=== PATIENT | male | born 1940 | race Caucasian/White ===

== ENCOUNTER → 2017-07-21 | Outpatient (CLI) | payer MEDICARE, OTHER ==
[~2017-07-21] MED LIST: ASP81TEC PO; ATEN100T88 PO; ATEN50TA PO; ATOR40TA70 PO; CATHETER FLUSH 10 ML SYR IV PRN; CHOL100011 PO; CLPD75T PO; ENDUR ACIN PO; EZET10TA5 PO; GABA-488 PO; HYDR12.56 PO; HYDR25TA4 PO; IOHEXOL 350 MG/ML 150 ML (OMNIPAQUE 350) VIAL IV ONE; LISI20TA PO; LUTE20TA PO; MULT-1029 PO; NIAC500T30 PO; NS 100 ML (IVPB) BAG IV ONE; OMEG1CAP51 PO; OMEG1CAP57 PO; VIT1TABL82 PO
[2017-07-21 09:24] LABS: ANION GAP 8 MMOL/L (5-14); BLOOD UREA NITROGEN 14 MG/DL (7-18); BUN/CREATININE RATIO 17; CALCIUM 9.5 MG/DL (8.5-10.1); CARBON DIOXIDE 30 MMOL/L (21-32); CHLORIDE 102 MMOL/L (98-107); CREATININE SERUM 0.82 MG/DL (0.60-1.30); GFR ESTIMATED > 60; GLUCOSE 104 MG/DL (70-105); POTASSIUM 3.9 MMOL/L (3.6-5.0); SODIUM 140 MMOL/L (135-145)
--- NOTE | 2017-07-21 12:20 | Diagnostic Imaging Report ---
PROCEDURE: CT angiography of the chest with contrast. TECHNIQUE: Multiple contiguous axial images were obtained through the chest after uneventful bolus administration of intravenous contrast. Reconstructed CTA MIP acquisitions were also performed. INDICATION: Ascending aortic aneurysm. 125 mL of Omnipaque 350 is administered intravenously. COMPARISON: The study is compared to 05/26/2014 exam. FINDINGS: There is an ascending aortic aneurysm with maximum caliber of 4.6 cm, stable from 2014. The aortic root is ectatic measuring 4.3 cm based on coronal images measurement similar to the previous exam. The aortic arch is mildly ectatic at 3.8 cm in caliber. Mild ectasia of the descending aorta is seen. The heart size is borderline. No pericardial or pleural effusion. No mediastinal mass or significantly enlarged lymph node is seen. No hilar or axillary lymphadenopathy is seen. The lungs demonstrate moderate emphysema. No significant consolidation, mass or suspicious nodule. The osseous structures demonstrate degenerative changes with anterior osteophyte seen. The sections in the upper abdomen demonstrate moderate to severe stenosis in the proximal celiac trunk. IMPRESSION: 1. Ascending aortic aneurysm measuring in the mid ascending aorta 4.6 cm similar to 2014 exam. The rest of the thoracic aorta and the aortic root are ectatic without significant change. 2. Emphysema. Dictated by: Dictated on workstation # [id number]
== END ==
LOC: RAD 08:51
PROVIDERS: ATTEND Internal Medicine Cardiovascular Disease
DX: I72.1 Aneurysm of artery of upper extremity (principal); J43.9 Emphysema, unspecified; I65.23 Occlusion and stenosis of bilateral carotid arteries; I70.213 Atherosclerosis of native arteries of extremities with intermittent claudication, bilateral legs; I10 Essential (primary) hypertension; I25.10 Atherosclerotic heart disease of native coronary artery without angina pectoris; E78.4 Other hyperlipidemia
CPT/HCPCS: 36415; 71275; 80048

== ENCOUNTER 2019-10-09 12:56 | Inpatient (IN) | payer MEDICARE, OTHER ==
[2019-10-09] VITALS (9 sets, daily range): BP systolic 104–153; BP diastolic 54–138
[~2019-10-09] VITALS: Ht 172.7 cm; Wt 80.6 kg
[~2019-10-09 12:56] MED LIST changes: -CATHETER FLUSH 10 ML SYR IV PRN; -IOHEXOL 350 MG/ML 150 ML (OMNIPAQUE 350) VIAL IV ONE; -NS 100 ML (IVPB) BAG IV ONE
[2019-10-09] MEDS ORDERED: ACETAMINOPHEN 325 MG TABLET PO PRN (15:00)
[2019-10-09] MEDS ORDERED: polyethylene glycoL POWDER 17 GM (MIRALAX) PACK PO PRN (15:00)
[2019-10-09] MEDS ORDERED: PATIENT MAY USE OWN MEDS, ALL PO SCH (15:00)
[2019-10-09] MEDS: cefTRIAXone FOR IV USE 1,000 MG in WATER (STERILE) FOR INJECTION 10 ML IV SCH (15:00)
[2019-10-09] MEDS ORDERED: MELATONIN 3 MG TABLET PO PRN (15:00)
[2019-10-09] MEDS ORDERED: ONDANSETRON 4 MG/2 ML (SDV) Z0FRAN IV PRN (15:00)
[2019-10-09] MEDS ORDERED: ONDANSETRON 4 MG (ZOFRAN) ORAL DISSOLVE TAB PO PRN (15:00)
[2019-10-09] MEDS ORDERED: BISACODYL 10 MG SUPP (DULCOLAX) PR PRN (15:00)
[2019-10-09] MEDS: ENOXAPARIN 40 MG/0.4 ML (LOVENOX) SYR SC SCH (15:00)
--- NOTE | 2019-10-09 15:04 | History & Physical-Hospitalist ---
History of Present Illness HPI/Chief Complaint Pt is an 79yoCM with a PMH of HTN and PAD who presented to the ER due to low oxygen saturations and low heart rate. He states that he checks his blood pressure eveyr day and last weke noticed that it was in the 30-40s so he called his PCP who advised him to cut his dose of Bystolic in half. Despite this it remained in the 40s. Overnight he felt short of breath and check his oxygen saturation and noticed it was 87. This all prompted him to seek evaluation in the ER at [facility]. Per ER MSW his heart rate revealed a sinus bradycardia at times and a complete heart block. He was transferred here for cardiac evaluation. Workup of hypoxia also revealed bilateral pneumonia and mycoplasma testing was positive. Source: patient Date Seen 10/09/19 Time Seen by a Provider: 14:58 Attending Physician Ata Morris MD PCP Jasmine Reyes MD Referring Physician Date of Admission Oct 09, 2019 at 14:25 Home Medications & Allergies Home Medications Reviewed patient Home Medication Reconciliation performed by pharmacy medication reconciliations semiconductor equipment technician and/or nursing. Patients Allergies have been reviewed. Allergies Allergies Coded Allergies No Known Drug Allergies (Unverified09/09/13) Past Jswpnqk-Okksfx-Akysbw Hx Past Med/Social Hx: Reviewed Nursing Past Med/Soc Hx Patient Social History Marrital Status: Smoking Status: Former Smoker Immunizations Up To Date Date of Pneumonia Vaccine: Sep 09, 2011 Date of Influenza Vaccine: May 19, 2019 Past Medical History Surgeries: Abdominal Cardiac: Hypertension, Peripheral Vascular Reproductive: No Gastrointestinal: Diverticulosis Musculoskeletal: Arthritis Loss of Vision: Denies Hearing Impairment: Hearing Aide Right, Hearing Aide Left Family History Reviewed Nursing Family Hx Angina 19 FATHER Dementia 19 MOTHER Diabetes mellitus Drug abuse G8 BROTHER FH: CHF (congestive heart failure) G8 BROTHER Hypercholesterolemia G8 BROTHER G8 SISTER Hypertension G8 BROTHER G8 SISTER Review of Systems Constitutional: No chills, No fever, No malaise EENTM: no symptoms reported Respiratory: orthopnea, short of breath Cardiovascular: see HPI; No chest pain, No edema, No Hx of Intervention, No palpitations Gastrointestinal: no symptoms reported Genitourinary: no symptoms reported Musculoskeletal: no symptoms reported Skin: no symptoms reported Psychiatric/Neurological: No Symptoms Reported Physical Exam Physical Exam Vital Signs Vital Signs - First Documented 10/09/19 14:43 Temp 37.2 Pulse 46 Resp 20 B/P (MAP) 104/82 (89) Pulse Ox 91 O2 Delivery Nasal Cannula O2 Flow Rate 3.00 Capillary Refill : Height, Weight, BMI Height: 5'8.00" Weight: 179lbs. 1.0oz. [id number]; 28.49 BMI Method: General Appearance: No Apparent Distress, WD/WN HEENT: Moist Mucous Membranes; No Scleral Icterus (L), No Scleral Icterus (R) Neck: Normal Inspection, Supple; No Carotid Bruit Respiratory: No Accessory Muscle Use, No Respiratory Distress, Decreased Breath Sounds; No Wheezing Cardiovascular: Regular Rate, Rhythm, No Murmur, Bradycardia Gastrointestinal: Normal Bowel Sounds, Non Tender, Soft Extremity: No Calf Tenderness, No Pedal Edema Neurologic/Psychiatric: Alert, Oriented x3, Normal Mood/Affect Results Results/Procedures Labs Patient resulted labs reviewed. Assessment/Plan Admission Diagnosis CAP Bradycardia Admission Status: Inpatient Order (span 2 midnights) Reason for Inpatient Admission: bradycardia Assessment and Plan CAP Hypoxia Continue abx, Rocephin and Doxycycline for mycoplasma Oxygen to keep sats >90 MAT protocol Bradycardia Cardiology consulted Reviewed EKG appears to be complete heart block Discussed with Dr Morris who will see in consultation Hold home Bystolic HTN BP low end of normal Hold meds Hypothyroidism Continue home synthroid Diagnosis/Problems Diagnosis/Problems (1) Bradycardia Status: Acute (2) HTN (hypertension) Status: Chronic Qualifiers: Hypertension type: essential hypertension Qualified Codes: I10 - Essential (primary) hypertension (3) PAD (peripheral artery disease) Status: Chronic (4) CAP (community acquired pneumonia) Status: Acute Qualifiers: Laterality: unspecified laterality Qualified Codes: J18.9 - Pneumonia, unspecified organism Clinical Quality Measures DVT/VTE Risk/Contraindication: Risk Factor Score Per Nursin RFS Level Per Nursing on Admit: 4+=Very High YEHUDA SIEGEL MD Oct 09, 2019 15:04
[2019-10-09] MEDS: DOXYCYCLINE INJECTION 100 MG in NS (IVPB) 100 ML IV SCH (20:07)
[2019-10-10] VITALS (7 sets, daily range): BP systolic 118–159; BP diastolic 64–92
[2019-10-10 04:19] LABS: MEAN PLATELET VOLUME 10.2 FL (7.4-10.4); RED CELL DISTRIBUTION WIDTH 13.9 % (10.0-14.5); WHITE BLOOD COUNT 5.7 10^3/uL (4.3-11.0)
[2019-10-10 04:40] LABS: INR 1.2 (0.8-1.4); PROTHROMBIN TIME PATIENT 15.8 SEC (12.2-14.7)
[2019-10-10 04:42] LABS: BUN/CREATININE RATIO 19; CALCIUM 8.5 MG/DL (8.5-10.1); CARBON DIOXIDE 21 MMOL/L (21-32); CHLORIDE 107 MMOL/L (98-107); CREATININE SERUM 0.67 MG/DL (0.60-1.30); GFR ESTIMATED > 60; GLUCOSE 90 MG/DL (70-105); POTASSIUM 3.1 MMOL/L (3.6-5.0); SODIUM 139 MMOL/L (135-145)
[2019-10-10] MEDS: LEVOTHYROXINE 88 MCG (LEVOTHORID) TAB PO SCH (06:35)
--- NOTE | 2019-10-10 07:26 | Diagnostic Imaging Report ---
INDICATION: Pneumonia. COMPARISON: 09/22/2014 FINDINGS: There is cardiomegaly. There is some venous congestion. There is a right upper lobe infiltrate. No pleural effusion or pneumothorax. IMPRESSION: 1. Right upper lobe infiltrate suspect for early pneumonia. 2. Cardiomegaly. 3. Mild central pulmonary venous congestion. Dictated by: Dictated on workstation # [id number]
--- NOTE | 2019-10-10 08:21 | Consultation-Cardiology ---
HPI-Cardiology Cardiology Consultation Date of Consultation 10/10/19 Date of Admission Time Seen by Provider: 08:17 Indication: Complete heart block HPI 79 years old gentleman with history of extensive peripheral arterial disease, hypertension. 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 He noted that his heart rate was in the 30s to 40s, he reported that usually his heart rate is in the mid to upper 40s, he called his primary care physician and his beta blockers dose was decreased. Noted some dyspnea that has been worsening, went to the emergency room and diagnosed with complete heart block and bilateral pneumonia and transferred over here. On my evaluation was laying down comfortably, denied any shortness of breath, no syncope, no chest pain, no palpitation, no claudications. Home Medications & Allergies Allergies: Coded Allergies: No Known Drug Allergies (Unverified , 09/09/13) Home Medication List Reviewed: Yes RAA-Eetybb-Dnitys Hx Patient Social History Marital Status: Smoking Status: Former Smoker Immunizations Up To Date Date of Pneumonia Vaccine: Sep 09, 2011 Date of Influenza Vaccine: May 19, 2019 Past Medical History Discussed below Family Medical History Family History: Angina 19 FATHER Dementia 19 MOTHER Diabetes mellitus Drug abuse G8 BROTHER FH: CHF (congestive heart failure) G8 BROTHER Hypercholesterolemia G8 BROTHER G8 SISTER Hypertension G8 BROTHER G8 SISTER Review of Systems-General Review of Systems Constitutional: see HPI; No chills, No fever, No malaise EENTM: see HPI, no symptoms reported Respiratory: see HPI; No cough; dyspnea on exertion; No hemoptysis; orthopnea; No phlegm; short of breath; No stridor, No wheezing, No other Cardiovascular: see HPI; No chest pain, No edema, No Hx of Intervention, No palpitations Gastrointestinal: no symptoms reported, see HPI Genitourinary: no symptoms reported Musculoskeletal: no symptoms reported, see HPI Skin: no symptoms reported, see HPI Psychiatric/Neurological: No Symptoms Reported, See HPI Reviewed Test Results Reviewed Test Results Lab Laboratory Tests Test 10/10/19 03:15 Range/Units White Blood Count 5.7 4.3-11.0 10^3/uL Red Blood Count 4.23 L 4.35-5.85 10^6/uL Hemoglobin 13.0 L 13.3-17.7 G/DL Hematocrit 39 L 40-54 % Mean Corpuscular Volume 93 80-99 FL Mean Corpuscular Hemoglobin 31 25-34 PG Mean Corpuscular Hemoglobin Concent 33 32-36 G/DL Red Cell Distribution Width 13.9 10.0-14.5 % Platelet Count 215 130-400 10^3/uL Mean Platelet Volume 10.2 7.4-10.4 FL Prothrombin Time 15.8 H 12.2-14.7 SEC INR Comment 1.2 0.8-1.4 Sodium Level 139 135-145 MMOL/L Potassium Level 3.1 L 3.6-5.0 MMOL/L Chloride Level 107 98-107 MMOL/L Carbon Dioxide Level 21 21-32 MMOL/L Anion Gap 11 5-14 MMOL/L Blood Urea Nitrogen 13 7-18 MG/DL Creatinine 0.67 0.60-1.30 MG/DL Estimat Glomerular Filtration Rate > 60 BUN/Creatinine Ratio 19 Glucose Level 90 70-105 MG/DL Calcium Level 8.5 8.5-10.1 MG/DL Physical Exam Physical Exam Vital Signs Vital Signs - First Documented 10/09/19 10/09/19 14:26 14:43 Temp 37.2 Pulse 47 Resp 20 B/P (MAP) 104/82 (89) Pulse Ox 91 O2 Delivery Nasal Cannula O2 Flow Rate 3.00 Capillary Refill : Greater Than 3 Seconds Height, Weight, BMI Height: 5'8.00" Weight: 179lbs. 1.0oz. 81.192033cb; 28.49 BMI Method: General Appearance: No Apparent Distress, WD/WN HEENT: Moist Mucous Membranes; No Scleral Icterus (L), No Scleral Icterus (R) Neck: Normal Inspection, Supple; No Carotid Bruit Respiratory: No Accessory Muscle Use, No Respiratory Distress, Decreased Breath Sounds; No Wheezing Cardiovascular: Regular Rate, Rhythm, No Murmur, Bradycardia Gastrointestinal: Normal Bowel Sounds, Non Tender, Soft Extremity: No Calf Tenderness, No Pedal Edema Neurologic/Psychiatric: Alert, Oriented x3, Normal Mood/Affect A/P-Cardiology Admission Diagnosis Complete heart block Pneumonia Coronary artery disease Peripheral arterial disease Assessment/Plan Complete heart block, heart rate in the 40s, has been off Bystolic for over 24 hours, still in complete heart block, discussed with him the management plan, I recommend monitoring him and treating pneumonia and possible proceeding with dual chamber pacemaker implantation tomorrow. Pneumonia, started on Rocephin and doxycycline, continue to monitor Coronary artery disease, patient had extensive risk factors, no recent workup, will need workup for coronary artery disease after his pacemaker implant. Peripheral arterial disease, extensive disease, multiple interventions done in the past, currently asymptomatic and walk about 10,000 steps without limitation. Continue with conservative management and monitor Hypertension, has been on Bystolic, currently on hold. Continue to monitor Hypokalemia, replace and monitor Clinical Quality Measures DVT/VTE Risk/Contraindication: Risk Factor Score Per Nursin RFS Level Per Nursing on Admit: 4+=Very High SIGRID GRACE MD Oct 10, 2019 08:21
[2019-10-10] MEDS: ASPIRIN E.C. 81 MG (ECOTRIN) TAB PO SCH ×2 (08:56→09:13)
[2019-10-10] MEDS: DOXYCYCLINE INJECTION 100 MG in NS (IVPB) 100 ML IV SCH ×2 (08:56→19:40)
[2019-10-10] MEDS: CLOPIDOGREL 75 MG (PLAVIX) TABLET PO SCH (08:56)
[2019-10-10] MEDS ORDERED: GABAPENTIN 600 MG (NEURONTIN) TAB PO ONE (09:15)
[2019-10-10] MEDS ORDERED: SALINE NASAL SPRAY (OCEAN) 45 ML BTL PRN (09:15)
[2019-10-10] MEDS ORDERED: GABAPENTIN 300 MG (NEURONTIN) CAP ONE (09:32)
[2019-10-10] MEDS: POTASSIUM CL 10MEQ/50ML IVPB 50 ML IV SCH ×4 (09:43→17:31)
[2019-10-10] MEDS: cefTRIAXone FOR IV USE 1,000 MG in WATER (STERILE) FOR INJECTION 10 ML IV SCH (17:29)
[2019-10-10] MEDS: ENOXAPARIN 40 MG/0.4 ML (LOVENOX) SYR SC SCH (17:29)
[2019-10-10] MEDS: GABAPENTIN 600 MG (NEURONTIN) TAB PO SCH (19:39)
[2019-10-11] VITALS (13 sets, daily range): BP systolic 128–193; BP diastolic 61–118
[2019-10-11 04:00] LABS: BASOPHILS % (AUTO) 1 % (0-10); EOSINOPHILS # (AUTO) 0.3 10^3/uL (0.0-0.3); EOSINOPHILS % (AUTO) 5 % (0-10); HEMATOCRIT 37 % (40-54); HEMOGLOBIN 12.6 G/DL (13.3-17.7); LYMPHOCYTES # (AUTO) 1.3 X 10^3 (1.0-4.0); LYMPHOCYTES % (AUTO) 25 % (12-44); MEAN CORPUSCULAR HEMOGLOBIN 32 PG (25-34); MEAN CORPUSCULAR HGB CONC 34 G/DL (32-36); MEAN CORPUSCULAR VOLUME 94 FL (80-99); MEAN PLATELET VOLUME 10.8 FL (7.4-10.4); MONOCYTES # (AUTO) 0.7 X 10^3 (0.0-1.0); MONOCYTES % (AUTO) 13 % (0-12); NEUTROPHILS # (AUTO) 2.8 X 10^3 (1.8-7.8); NEUTROPHILS % (AUTO) 56 % (42-75); PLATELET COUNT 228 10^3/uL (130-400); RED CELL DISTRIBUTION WIDTH 13.5 % (10.0-14.5)
[2019-10-11 04:14] LABS: ALANINE AMINOTRANSFERASE 16 U/L (0-55); ALKALINE PHOSPHATASE 71 U/L (40-136); BILIRUBIN,TOTAL 0.5 MG/DL (0.1-1.0); BUN/CREATININE RATIO 20; CALCIUM 8.1 MG/DL (8.5-10.1); CARBON DIOXIDE 22 MMOL/L (21-32); CHLORIDE 109 MMOL/L (98-107); CREATININE SERUM 0.76 MG/DL (0.60-1.30); GFR ESTIMATED > 60; GLUCOSE 112 MG/DL (70-105); MAGNESIUM 1.8 MG/DL (1.6-2.4); PHOSPHORUS 3.1 MG/DL (2.3-4.7); POTASSIUM 3.3 MMOL/L (3.6-5.0); SODIUM 138 MMOL/L (135-145); TOTAL PROTEIN 5.5 GM/DL (6.4-8.2)
--- NOTE | 2019-10-11 04:42 | Pulmonary Consultation ---
History of Present Illness History of Present Illness Date Seen by Provider: Oct 11, 2019 Time Seen by Provider: 04:37 Date of Admission Reason for Visit: Complete heart block Allergies and Home Medications Allergies Coded Allergies: No Known Drug Allergies (Unverified , 09/09/13) Home Medications Aspirin 81 Mg Tabec, 81 MG PO DAILY, (Reported) Atenolol 100 Mg Tablet, 100 MG PO DAILY, (Reported) Atorvastatin Calcium 40 Mg Tablet, 40 MG PO HS, (Reported) takes daily at 1630 Cholecalciferol 1,000 Unit Capsule, 1,000 UNIT PO DAILY, (Reported) Clopidogrel Bisulfate 75 Mg Tab, 75 MG PO HS, (Reported) takes daily at 1630 Ezetimibe 10 Mg Tablet, 10 MG PO DAILY, (Reported) Hydrochlorothiazide 25 Mg Tablet, 25 MG PO DAILY, (Reported) Lisinopril 20 Mg Tablet, 20 MG PO HS, (Reported) Mu-Vits-Min Th/Lycopene/Lutein 1 Each Tablet, 1 TAB PO HS, (Reported) Niacin 500 Mg Tablet.sa, 500 MG PO HS, (Reported) Dixon-3 Fatty Acids/Fish Oil 1 Each Capsule, 2,000 MG PO BID, (Reported) Vit B Comp/C/Fa/Iron/Vit E 1 Each Tablet, 1 TAB PO DAILY, (Reported) Past Ddtacjw-Fsuuwg-Emcqbe Hx Past Med/Social Hx: Reviewed Nursing Past Med/Soc Hx Patient Social History Smoking Status: Former Smoker Immunizations Up To Date Date of Pneumonia Vaccine: Sep 09, 2011 Date of Influenza Vaccine: May 19, 2019 Past Medical History Abdominal Hypertension, Peripheral Vascular Reproductive Disorders: No Diverticulosis Arthritis Loss of Vision: Denies Hearing Impairment: Hearing Aide Right, Hearing Aide Left Family Medical History Reviewed Nursing Family Hx Angina 19 FATHER Dementia 19 MOTHER Diabetes mellitus Drug abuse G8 BROTHER FH: CHF (congestive heart failure) G8 BROTHER Hypercholesterolemia G8 BROTHER G8 SISTER Hypertension G8 BROTHER G8 SISTER Sepsis Event Evaluation Height, Weight, BMI Height: 5'8.00" Weight: 179lbs. 1.0oz. 81.415874zd; 28.49 BMI Method: Exam Exam Vital Signs Date Time Temp Pulse Resp B/P (MAP) Pulse Ox O2 Delivery O2 Flow Rate FiO2 10/11/19 01:00 40 10/10/19 23:28 Nasal Cannula 2.00 10/10/19 23:24 37.6 40 22 135/64 (87) 92 Nasal Cannula 2.00 10/10/19 20:00 Nasal Cannula 2.00 10/10/19 19:43 36.8 48 19 159/73 (101) 92 Nasal Cannula 2.00 10/10/19 19:40 Nasal Cannula 2.00 10/10/19 19:01 46 10/10/19 18:29 Nasal Cannula 1.00 10/10/19 16:00 37.0 10/10/19 16:00 92 Nasal Cannula 2.00 10/10/19 16:00 42 16 129/79 (96) 93 Nasal Cannula 3.00 10/10/19 13:00 44 10/10/19 12:00 92 Nasal Cannula 2.00 10/10/19 12:00 37.1 10/10/19 12:00 46 19 118/77 (91) 92 Nasal Cannula 3.00 10/10/19 09:20 92 Nasal Cannula 2.00 10/10/19 08:00 92 Nasal Cannula 2.00 10/10/19 08:00 45 154/92 (112) 95 Nasal Cannula 3.00 10/10/19 07:00 42 I & O 10/11/19 07:00 Intake Total 500 ml Output Total 600 ml Balance -100 ml Height & Weight Height: 5'8.00" Weight: 179lbs. 1.0oz. 81.285095dp; 28.49 BMI Method: General Appearance: No Apparent Distress, WD/WN HEENT: Moist Mucous Membranes; No Scleral Icterus (L), No Scleral Icterus (R) Neck: Normal Inspection, Supple; No Carotid Bruit Respiratory: No Accessory Muscle Use, No Respiratory Distress, Decreased Breath Sounds; No Wheezing Cardiovascular: Regular Rate, Rhythm, No Murmur, Bradycardia Capillary Refill: Less Than 3 Seconds Extremity: No Calf Tenderness, No Pedal Edema Neurologic/Psychiatric: Alert, Oriented x3, Normal Mood/Affect Results Lab Laboratory Tests 10/10/19 03:15 10/11/19 03:10 Assessment/Plan Assessment/Plan Pneumonia -Currently on doxy and Rocephin -IVF -Check influenza and MRSA swab -Thacker cultures pending -Urine strep and legionella Ag CAD with complete heart block -Cardiology following PVD GAURAV CH DO Oct 11, 2019 04:42
[2019-10-11] MEDS: POTASSIUM CL 10MEQ/50ML IVPB 50 ML IV SCH ×4 (05:15→06:56)
[2019-10-11] MEDS: KCL 20 MEQ TAB (K-DUR) PO SCH (05:16)
[2019-10-11] MEDS: MAGNESIUM 1 GM/100 ML IVPB 100 ML IV SCH (05:16)
[2019-10-11 06:05] LABS: BILIRUBIN,URINE NEGATIVE (NEGATIVE); CLARITY,URINE CLEAR; COLOR,URINE YELLOW; GLUCOSE, URINE (UA) NEGATIVE (NEGATIVE); KETONES,URINE NEGATIVE (NEGATIVE); LEUKOCYTE ESTERASE ,URINE 1+ (NEGATIVE); NITRITE,URINE NEGATIVE (NEGATIVE); PH,URINE 6.5 (5-9); PROTEIN,URINE NEGATIVE (NEGATIVE)
[2019-10-11 06:39] LABS: AMORPHOUS SEDIMENT,UR FEW AMOR URATES /LPF; BACTERIA,URINE TRACE /HPF
[2019-10-11] MEDS: LACTATED RINGERS 1,000 ML IV SCH (06:51)
[2019-10-11] MEDS: LEVOTHYROXINE 88 MCG (LEVOTHORID) TAB PO SCH (07:34)
--- NOTE | 2019-10-11 09:01 | Diagnostic Imaging Report ---
EXAMINATION: Chest radiograph, portable AP view. DATE: 10/11/2019 3:58 AM. INDICATION: 79-year-old male, history of pneumonia. Exam positive for mycoplasma. COMPARISON: October 10, 2019 at 0334 hours. FINDINGS: The heart size and mediastinal contours are unchanged. There is no identified pneumothorax. There is multifocal airspace consolidation in the right lung and subtle opacification in the left lung. The overall aeration of the lungs is essentially unchanged. IMPRESSION: Unchanged nonspecific multifocal lung consolidation bilaterally with the findings more prominent in the right lung compared to the left. Dictated by: Dictated on workstation # [id number]
[2019-10-11] MEDS: ASPIRIN E.C. 81 MG (ECOTRIN) TAB PO SCH ×2 (09:31→09:35)
[2019-10-11] MEDS: DOXYCYCLINE INJECTION 100 MG in NS (IVPB) 100 ML IV SCH ×2 (09:31→20:26)
[2019-10-11] MEDS: GABAPENTIN 600 MG (NEURONTIN) TAB PO SCH ×2 (09:31→20:26)
--- NOTE | 2019-10-11 09:34 | Progress Note - Cardiology ---
Cardiology SOAP Progress Note Subjective: No cp or palp or syncope Tires easily Moderate exertional shortness of breath No focal weakness Gen malaise and tiredness No n/v/d Objective: I&O/Vital Signs 10/10/19 10/10/19 10/11/19 10/11/19 23:24 23:28 01:00 05:00 Temp 37.6 36.7 Pulse 40 40 40 Resp 22 20 B/P (MAP) 135/64 (87) 131/61 (84) Pulse Ox 92 93 O2 Delivery Nasal Cannula Nasal Cannula Nasal Cannula O2 Flow Rate 2.00 2.00 2.00 10/11/19 10/11/19 10/11/19 10/11/19 05:00 06:48 07:17 08:00 Temp 36.3 Pulse 43 43 40 Resp 18 17 B/P (MAP) 193/95 (127) 153/95 (114) Pulse Ox 94 91 O2 Delivery Nasal Cannula Nasal Cannula O2 Flow Rate 2.00 2.00 10/11/19 00:00 Intake Total 810 ml Output Total 600 ml Balance 210 ml Weight (Pounds): 179 Weight (Ounces): 1.0 Weight (Calculated Kilograms): 81.683143 Constitutional: AAO x 3, well-developed, well-nourished Respiratory: No accessory muscle use; other (good bilat air entry) Cardiovascular: regular rate-rhythm, S1 and S2, systolic murmur Gastrointestional: No tender; soft; No guarding, No rebound; audible bowel sounds Extremities: No clubbing, No cyanosis, No significant edema Neurologic/Psychiatric: oriented x 3, other (moves all limbs equally) Skin: No rash on exposed areas, No ulcerations on exposed areas Results/Procedures: Labs Laboratory Tests 10/11/19 03:10: White Blood Count 5.0, Red Blood Count 3.98L, Hemoglobin 12.6L, Hematocrit 37L, Mean Corpuscular Volume 94, Mean Corpuscular Hemoglobin 32, Mean Corpuscular Hemoglobin Concent 34, Red Cell Distribution Width 13.5, Platelet Count 228, Mean Platelet Volume 10.8H, Neutrophils (%) (Auto) 56, Lymphocytes (%) (Auto) 25, Monocytes (%) (Auto) 13H, Eosinophils (%) (Auto) 5, Basophils (%) (Auto) 1, Neutrophils # (Auto) 2.8, Lymphocytes # (Auto) 1.3, Monocytes # (Auto) 0.7, Eosinophils # (Auto) 0.3, Basophils # (Auto) 0.0, Sodium Level 138, Potassium Level 3.3L, Chloride Level 109H, Carbon Dioxide Level 22, Anion Gap 7, Blood Urea Nitrogen 15, Creatinine 0.76, Estimat Glomerular Filtration Rate > 60, BUN/Creatinine Ratio 20, Glucose Level 112H, Calcium Level 8.1L, Corrected Calcium 8.9, Phosphorus Level 3.1, Magnesium Level 1.8, Total Bilirubin 0.5, Aspartate Amino Transf (AST/SGOT) 17, Alanine Aminotransferase (ALT/SGPT) 16, Alkaline Phosphatase 71, B-Type Natriuretic Peptide 262.5H, Total Protein 5.5L, Albumin 3.0L 10/11/19 05:30: Urine Color YELLOW, Urine Clarity CLEAR, Urine pH 6.5, Urine Specific [place] 1.020, Urine Protein NEGATIVE, Urine Glucose (UA) NEGATIVE, Urine Ketones NEGATIVE, Urine Nitrite NEGATIVE, Urine Bilirubin NEGATIVE, Urine Urobilinogen 0.2, Urine Leukocyte Esterase 1+H, Urine RBC (Auto) NEGATIVE, Urine RBC NONE, Urine WBC 2-5, Urine Squamous Epithelial Cells NONE, Urine Crystals PRESENTH, Urine Amorphous Sediment FEW CHATO URATESH, Urine Bacteria TRACE, Urine Casts NONE, Urine Mucus SMALLH, Urine Culture Indicated NO A/P: Assessment: Complete heart block, symptomatic, persistent 48 hours after cessation of beta- blockers CAD, based on an abnormal stress MPI done on 08/30/13 that showed a small amount of apical ischemia and LVEF 54% PAD followed by Dr Parra; bilat superficial fem artery intervnentions by Dr Parra in early 2013; subsequent stent thrombosis of R sup fem in early/mid May 2014 requiring thrombolysis and PTCA (Dr Parra). Subsequenly, on 09/22/14 he underwent ballooon angioplasty and stenting of prox R SFA and distal R popliteal arteries (Dr Parra). On 02/23/15 he had PCI to R SFA and R and post tibial and peroneal arteries by Dr Burrell; this included balloon angioplasty and multiple stents Last ultrasound of the legs at Dr Heard on 03/28/15 showed excellent flow in the R leg; however, right leg arterial doppler of 07/11/15 shows that R sup fem is occluded within the stent and there is collateralization distally from the right deep femoral. He has since had PCI to the R leg by Dr Richards at [facility] in December 2015 and has no currentl leg claudication ML 11/17/17 at [facility]: 1 on R and 0.5 on L (no leg claudication) Renal arterial u/s of 10/10/17 at [facility]: normal H/o anemia, followed by pcp Hypertension Hyperlipidemia, followed by his pcp Borderline IFG Mild to mod carotid art disease on carotid u/s of January 2017 No AAA on abd ao u/s of January 2017 Chronic tobacco use, quit in early May 2014 Last echo of 12/11/16: LVEF 60%, mild conc LVH, mild LAE, mild aor root enlargement, AoV sclerosis and MAC w/o significant valvular stenoses, mild MR, milt TR, mild AI, PASP [address] angio of 05/26/14 showed bilat pleural eff (mod large), borderline pathologically enlarged mediastinal lymph nodes, and aneurysmal dilatation of ascending aorta (4.6 cm). [address] angio of 07/21/17 showed asc ao aneurysm unchanged (4.6cm zahra) and emphysema. For pleural eff and COPD and mediastinal lymphadenopathy, he follows with Dr Cash of the [facility] Chronic peripheral neuropathy involving the feet, more on the right Hypothyroidism, being managed by pcp Plan: * I interviewed and examined him, reviewed his records, and discussed his case with Dr Morris * Given persistent heart block with symptoms, despite more than 48 hrs of bb discontinuation, pacemaker appears appropriate * I discussed in detail the rationale, procedure, risks, benefits, potential complications, and alternative of perm pacemaker with him and his . He understands and provides informed consent RAEGAN MUNGUIA MD [facility] Oct 11, 2019 09:34
[2019-10-11] MEDS: CLOPIDOGREL 75 MG (PLAVIX) TABLET PO SCH (09:35)
--- NOTE | 2019-10-11 11:39 | NUR ---
Initial visit: The pt is Russel. He welcomed my presence, shook my hand, and engaged warmly. The pt demonstrated he was tired, so I encouraged his rest and offered to follow up however helpful to him. He expressed appreciation for this.
[2019-10-11] MEDS ORDERED: LIDOCAINE 1% INJ 20 ML 20 ML VIAL ONE (12:19)
[2019-10-11] MEDS ORDERED: HEParin (CATH LAB) 1,000 ML IV ONE (12:19)
[2019-10-11] MEDS ORDERED: ceFAZolin INJECTION 1,000 MG VIAL IV NR (12:30)
[2019-10-11] MEDS ORDERED: BACITRACIN 50000 UNITS/500 ML NS IR ONE ×2 (12:30)
[2019-10-11] MEDS ORDERED: BACITRACIN INJECTION 50,000 UNIT, SODIUM CHLORIDE 0.9% IRRIGATIO 500 ML IR ONE ×2 (12:30)
[2019-10-11] MEDS: ENOXAPARIN 40 MG/0.4 ML (LOVENOX) SYR SC SCH (12:59)
[2019-10-11] MEDS ORDERED: LEVO88TA54 PO (13:35)
[2019-10-11] MEDS ORDERED: LISI40TA PO (13:35)
[2019-10-11] MEDS ORDERED: ATOR40TA70 PO (13:35)
[2019-10-11] MEDS ORDERED: AMLO10TA7 PO (13:35)
[2019-10-11] MEDS ORDERED: CLOP75TA28 PO (13:35)
[2019-10-11] MEDS ORDERED: HYDR25TA4 PO (13:35)
[2019-10-11] MEDS ORDERED: GABA-488 PO (13:35)
[2019-10-11] MEDS ORDERED: MULT-1029 PO (13:37)
[2019-10-11] MEDS ORDERED: ASPI-983 PO (13:37)
[2019-10-11] MEDS ORDERED: NIAC250T25 PO (13:37)
--- NOTE | 2019-10-11 13:39 | NUR ---
SPOKE WITH THE PT (HE HAD HIS HOME MEDS) AND WENT THRU THE EXT MED HIST TO COMPLETE THE MED REC. BYSTHUY IS LISTED ON THE EXT MED HISTORY HOWEVER THE PT SAYS HE IS NO LONGER TAKING THIS MEDICATION. GABAPENTIN 300MG: THE DIRECTIONS ARE " 2 CAPS TID" HOWEVER THE PT TAKES 3 CAPS BID. ALL OTHER MEDICATIONS ARE CORRECT PER THE EXT MED HISTORY OTC MEDS: ASPIRIN MTV TYLENOL ENDURACIN
[2019-10-11] MEDS ORDERED: ACET-2267 PO (13:42)
[2019-10-11] MEDS: cefTRIAXone FOR IV USE 1,000 MG in WATER (STERILE) FOR INJECTION 10 ML IV SCH (16:23)
[2019-10-11] MEDS ORDERED: ceFAZolin INJECTION 1,000 MG ONE (16:38)
[2019-10-11] MEDS ORDERED: NS (IVPB) 50 ML ONE (16:38)
[2019-10-11] MEDS ORDERED: fentaNYL INJECTION 100 MCG/2 ML AMP ONE ×2 (16:38→17:25)
[2019-10-11] MEDS ORDERED: MIDAZOLAM 5 MG/5 ML (VERSED) VIAL ONE ×2 (16:38→17:25)
--- NOTE | 2019-10-11 17:27 | Progress Note - Hospitalist ---
Subjective HPI/CC On Admission Date Seen by Provider: Oct 11, 2019 Time Seen by Provider: 08:45 Pt is an 79yoCM with a PMH of HTN and PAD who presented to the ER due to low oxygen saturations and low heart rate. He states that he checks his blood pressure eveyr day and last weke noticed that it was in the 30-40s so he called his PCP who advised him to cut his dose of Bystolic in half. Despite this it remained in the 40s. Overnight he felt short of breath and check his oxygen saturation and noticed it was 87. This all prompted him to seek evaluation in the ER at [place]. 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 He was transferred here for cardiac evaluation. Workup of hypoxia also revealed bilateral pneumonia and mycoplasma testing was positive. Subjective/Events-last exam he says that he is feeling well this morning. He has no complaints or concerns. He denies any shortness of breath or cough. He reports fatigue. He denies any lightheadedness or dizziness. Objective Exam Vital Signs Vital Signs Date Time Temp Pulse Resp B/P (MAP) Pulse Ox O2 Delivery O2 Flow Rate FiO2 10/11/19 16:38 Nasal Cannula 2.00 10/11/19 15:28 36.4 40 17 128/92 (104) 92 Capillary Refill : Less Than 3 Seconds General Appearance: No Apparent Distress, WD/WN HEENT: PERRL/EOMI, Pharynx Normal Neck: Normal Inspection, Supple Respiratory: Lungs Clear, Normal Breath Sounds, No Respiratory Distress Cardiovascular: Bradycardia, Irregularly Irregular Gastrointestinal: Normal Bowel Sounds, Non Tender, Soft Extremity: Normal Inspection, Non Tender, No Pedal Edema Neurologic/Psychiatric: Alert, Oriented x3, No Motor/Sensory Deficits, Normal Mood/Affect Skin: Normal Color, Warm/Dry Results/Procedures Lab Laboratory Tests 10/11/19 03:10 Patient resulted labs reviewed. Imaging: Reviewed Imaging Report Assessment/Plan Assessment and Plan Assess & Plan/Chief Complaint Complete heart block Cardiology consulted continue to hold beta sanford Will likely require pacemaker placement Possible pneumonia Mycoplasma positive at [place] Continue doxycycline Hypertension Hold home meds Hypothyroidism continue Synthroid DVT prophylaxis: Lovenox Diagnosis/Problems Diagnosis/Problems (1) Complete heart block Status: Acute (2) Mycoplasma pneumonia Status: Acute Qualifiers: Laterality: unspecified laterality Lung location: unspecified part of lung Qualified Codes: J15.7 - Pneumonia due to Mycoplasma pneumoniae Clinical Quality Measures DVT/VTE Risk/Contraindication: Risk Factor Score Per Nursin RFS Level Per Nursing on Admit: 4+=Very High JESUS POPE MD Oct 11, 2019 17:27
[2019-10-11] MEDS ORDERED: NS IV 1000 ML 1,000 ML IV SCH (19:05)
[2019-10-11] MEDS ORDERED: PATIENT MAY USE OWN MEDS, ALL PO SCH (19:15)
--- NOTE | 2019-10-11 19:44 | Diagnostic Imaging Report ---
INDICATION: Pacemaker placement PA and lateral views of the chest are obtained. Since the study of earlier in the day, there has been placement of a left anterior chest wall pacemaker with leads projecting over the right atrium and ventricle. There does appear to be a small amount of left pleural fluid however there is no pneumothorax. Pulmonary venous congestion has developed. IMPRESSION: Postoperative pulmonary venous congestion with probable mild left pleural fluid. No pneumothorax or other complication is seen. Dictated by: Dictated on workstation # [id number]
[2019-10-11] MEDS: ceFAZolin INJECTION 1,000 MG in WATER (STERILE) FOR INJECTION 10 ML IV SCH (21:07)
[2019-10-12] VITALS: BP 151/85
--- NOTE | 2019-10-12 03:24 | OPERATIVE REPORT ---
DATE OF SERVICE: 10/11/2019 PREOPERATIVE DIAGNOSIS: Complete heart block. POSTOPERATIVE DIAGNOSIS: Complete heart block. PROCEDURE: Dual chamber permanent pacemaker implantation. ESTIMATED BLOOD LOSS: Less than 20 mL. INDICATIONS: The patient is an 79-year-old gentleman who presents with symptomatic bradycardia and is found to have complete heart block that persisted 2 days after discontinuation of beta blockers. Pacemaker implantation was carried out after having obtained informed consent. DESCRIPTION OF PROCEDURE: He was brought to the cardiac catheterization laboratory in a fasting state. The left prepectoral area was prepared and draped in the usual sterile fashion. Lidocaine 1% for local anesthesia. We used the ultrasound to ev the femoral arteries and subclavian vein and to access the vein using the Seldinger technique. Two separate punctures were made. Two guidewires were advanced with the tip was placed in the right atrium. Sharp and blunt dissection was used to make a pacemaker pocket. Good hemostasis was assured. The pocket was packed with gauze soaked in antibiotic solution. The guidewires were used to advance sheaths and the guidewires were removed. The sheaths were used to advance leads and the sheaths were removed. All lead manipulation was carried out under fluoroscopy. The right atrial lead is Tendril 2088TC-46 with serial [id number]. This is an active fixation lead and the tip was placed at the right atrial appendage. The right ventricular lead is Tendril [id number]-52 with serial [id number]. This is an active fixation lead and is placed at the right ventricular apex. Both leads were tested at 10 volts and there was no diaphragmatic stimulation. The right atrial lead sensed the atrium at 3.1 millivolts and the pacing impedance was 401 ohms and the capture threshold was 1.3 volts at 0.4 milliseconds. The ventricular lead sensed the ventricle at 15.1 millivolts, the pacing threshold was 0.6 volts at 0.4 milliseconds and the pacing impedance was 760 ohms. The leads were attached to the prepectoral fascia using sleeves and 0 Ethibond. The leads were attached to a dual chamber pacemaker. This is model [id number] with serial #[id number]. The antibiotic soaks were removed from the pocket and the pocket was thoroughly irrigated with an antibiotic solution and then the pacemaker and the leads were placed in the pacemaker pocket and the pocket was closed in 2 layers using 3.0 Vicryl. The patient tolerated the procedure well. The pacemaker is set in the DDDR mode with a lower rate of 16 and upper rate of 130. The patient tolerated the procedure well. Job ID: [id number] DocumentID: [id number] Dictated Date: 10/11/2019 19:01:57 Clean Out Driller Helper Date: 10/12/2019 03:23:21 Dictated By: RAEGAN MUNGUIA MD, MA, FACP, FACC,
[2019-10-12 03:44] LABS: BASOPHILS % (AUTO) 1 % (0-10); EOSINOPHILS # (AUTO) 0.3 10^3/uL (0.0-0.3); EOSINOPHILS % (AUTO) 7 % (0-10); HEMATOCRIT 40 % (40-54); HEMOGLOBIN 13.3 G/DL (13.3-17.7); LYMPHOCYTES # (AUTO) 1.2 X 10^3 (1.0-4.0); LYMPHOCYTES % (AUTO) 23 % (12-44); MEAN CORPUSCULAR HEMOGLOBIN 31 PG (25-34); MEAN CORPUSCULAR HGB CONC 34 G/DL (32-36); MEAN CORPUSCULAR VOLUME 92 FL (80-99); MEAN PLATELET VOLUME 9.7 FL (7.4-10.4); MONOCYTES # (AUTO) 0.5 X 10^3 (0.0-1.0); MONOCYTES % (AUTO) 11 % (0-12); NEUTROPHILS # (AUTO) 2.9 X 10^3 (1.8-7.8); NEUTROPHILS % (AUTO) 58 % (42-75); PLATELET COUNT 231 10^3/uL (130-400); RED CELL DISTRIBUTION WIDTH 13.2 % (10.0-14.5)
[2019-10-12 04:05] LABS: ALANINE AMINOTRANSFERASE 20 U/L (0-55); ALBUMIN 3.4 GM/DL (3.2-4.5); ALKALINE PHOSPHATASE 81 U/L (40-136); BILIRUBIN,TOTAL 0.8 MG/DL (0.1-1.0); BUN/CREATININE RATIO 15; CALCIUM 8.5 MG/DL (8.5-10.1); CARBON DIOXIDE 20 MMOL/L (21-32); CHLORIDE 108 MMOL/L (98-107); CREATININE SERUM 0.68 MG/DL (0.60-1.30); GFR ESTIMATED > 60; GLUCOSE 74 MG/DL (70-105); MAGNESIUM 1.7 MG/DL (1.6-2.4); PHOSPHORUS 2.9 MG/DL (2.3-4.7); POTASSIUM 3.5 MMOL/L (3.6-5.0); SODIUM 139 MMOL/L (135-145); TOTAL PROTEIN 6.2 GM/DL (6.4-8.2)
[2019-10-12 04:06] VITALS: BP 160/85
--- NOTE | 2019-10-12 05:51 | Pulmonary Progress Note ---
Subjective Time Seen by a Provider: 05:48 Sepsis Event Evaluation Height, Weight, BMI Height: 5'8.00" Weight: 179lbs. 1.0oz. 81.601613yd; 28.49 BMI Method: Exam Exam Vital Signs Date Time Temp Pulse Resp B/P (MAP) Pulse Ox O2 Delivery O2 Flow Rate FiO2 10/12/19 04:06 67 23 160/85 (110) 91 Room Air 10/12/19 03:39 Room Air 10/12/19 03:38 36.5 10/12/19 01:00 67 10/12/19 00:00 66 151/85 (107) 93 Room Air 10/11/19 23:25 36.1 10/11/19 23:25 Nasal Cannula 2.00 10/11/19 23:00 70 132/77 (95) 93 Nasal Cannula 2.00 10/11/19 22:00 73 150/86 (107) 94 Nasal Cannula 2.00 10/11/19 21:00 79 16 128/118 (121) 92 Nasal Cannula 2.00 10/11/19 20:45 68 15 151/85 (107) 95 Nasal Cannula 2.00 10/11/19 20:37 93 Nasal Cannula 2.00 10/11/19 20:30 68 23 159/80 (106) 94 Nasal Cannula 2.00 10/11/19 20:15 69 13 158/90 (112) 94 Nasal Cannula 2.00 10/11/19 20:00 66 13 149/83 (105) 93 Nasal Cannula 2.00 10/11/19 20:00 Nasal Cannula 2.00 10/11/19 19:45 66 26 140/85 (103) Nasal Cannula 2.00 10/11/19 19:45 66 10/11/19 16:38 Nasal Cannula 2.00 10/11/19 15:28 36.4 40 17 128/92 (104) 92 10/11/19 12:39 44 10/11/19 12:30 Nasal Cannula 2.00 10/11/19 11:19 37.1 43 22 153/93 (113) 96 10/11/19 08:10 93 Nasal Cannula 2.00 10/11/19 08:00 40 17 153/95 (114) 91 Nasal Cannula 2.00 10/11/19 07:17 36.3 43 18 193/95 (127) 94 10/11/19 06:48 43 I & O 10/12/19 07:00 Intake Total 1595 ml Output Total 750 ml Balance 845 ml Height & Weight Height: 5'8.00" Weight: 179lbs. 1.0oz. 81.245935vf; 28.49 BMI Method: General Appearance: No Apparent Distress, WD/WN HEENT: PERRL/EOMI, Pharynx Normal Neck: Normal Inspection, Supple Respiratory: Lungs Clear, Normal Breath Sounds, No Respiratory Distress Cardiovascular: Bradycardia, Irregularly Irregular Capillary Refill: Less Than 3 Seconds Extremity: Normal Inspection, Non Tender, No Pedal Edema Neurologic/Psychiatric: Alert, Oriented x3, No Motor/Sensory Deficits, Normal Mood/Affect Skin: Normal Color, Warm/Dry Results Lab Laboratory Tests 10/11/19 03:10 10/12/19 03:23 Assessment/Plan Assessment/Plan Pneumonia -Currently on doxy and Rocephin -IVF -Check influenza and MRSA swab -Thacker cultures pending -Urine strep and legionella Ag CAD with complete heart block s/p pacemaker -Cardiology following PVD GAURAV CH DO Oct 12, 2019 05:51
[2019-10-12] MEDS ORDERED: KCL 20 MEQ TAB (K-DUR) PO ONE (06:00)
[2019-10-12] MEDS: LACTATED RINGERS 1,000 ML IV SCH (06:03)
[2019-10-12] MEDS: MAGNESIUM 1 GM/100 ML IVPB 100 ML IV SCH ×2 (06:03→06:10)
[2019-10-12] MEDS: ceFAZolin INJECTION 1,000 MG in WATER (STERILE) FOR INJECTION 10 ML IV SCH (06:07)
[2019-10-12] MEDS: KCL 20 MEQ TAB (K-DUR) PO SCH (06:10)
[2019-10-12] MEDS: POTASSIUM CL 10MEQ/50ML IVPB 50 ML IV SCH (06:10)
[2019-10-12] MEDS: LEVOTHYROXINE 88 MCG (LEVOTHORID) TAB PO SCH (06:12)
--- NOTE | 2019-10-12 07:58 | Diagnostic Imaging Report ---
HISTORY: Bilateral pneumonia. COMPARISON: 10/11/2019 TECHNIQUE: Single frontal view of the chest FINDINGS: Lung volumes are normal. Airspace opacities in the right lung base and right upper lobe appear stable. There are airspace opacities in the left lung base as well which appears stable. No pleural effusion or pneumothorax is seen. Left-sided pacemaker leads appear stable. There is aortic atherosclerosis. IMPRESSION: 1. Opacities in the lung bases and right upper lobe appear stable since the prior study. Dictated by: Dictated on workstation # [id number]
[2019-10-12 08:00] VITALS: BP 143/70
[2019-10-12] MEDS: ASPIRIN E.C. 81 MG (ECOTRIN) TAB PO SCH ×2 (08:04→09:00)
[2019-10-12] MEDS: CLOPIDOGREL 75 MG (PLAVIX) TABLET PO SCH (08:04)
[2019-10-12] MEDS: GABAPENTIN 600 MG (NEURONTIN) TAB PO SCH (08:04)
--- NOTE | 2019-10-12 08:48 | Progress Note - Cardiology ---
Cardiology SOAP Progress Note Subjective: Lying in bed. No c/o CP, palpitations, syncope, near syncope or dyspnea. Spouse at the bedside. Objective: I&O/Vital Signs 10/11/19 10/11/19 10/11/19 10/12/19 23:00 23:25 23:25 00:00 Temp 36.1 Pulse 70 66 B/P (MAP) 132/77 (95) 151/85 (107) Pulse Ox 93 93 O2 Delivery Nasal Cannula Nasal Cannula Room Air O2 Flow Rate 2.00 2.00 10/12/19 10/12/19 10/12/19 10/12/19 01:00 03:38 03:39 04:06 Temp 36.5 Pulse 67 67 Resp 23 B/P (MAP) 160/85 (110) Pulse Ox 91 O2 Delivery Room Air Room Air 10/12/19 10/12/19 07:00 08:00 Pulse 78 77 Resp 19 B/P (MAP) 143/70 (94) Pulse Ox 91 O2 Delivery Room Air 10/12/19 00:00 Intake Total 595 ml Output Total 750 ml Balance -155 ml Weight (Pounds): 179 Weight (Ounces): 1.0 Weight (Calculated Kilograms): 81.702898 Side: left Device Insertion Site: without hematoma Swelling: without swelling Drainage: No Bruising: mild bruising Constitutional: AAO x 3, well-developed, well-nourished Respiratory: No accessory muscle use; other (good bilat air entry) Cardiovascular: regular rate-rhythm, S1 and S2, systolic murmur Gastrointestional: No tender; soft; No guarding, No rebound; audible bowel sounds Extremities: No clubbing, No cyanosis, No significant edema Neurologic/Psychiatric: oriented x 3, other (moves all limbs equally) Skin: No rash on exposed areas, No ulcerations on exposed areas Results/Procedures: Labs Laboratory Tests 10/12/19 03:23: White Blood Count 5.0, Red Blood Count 4.28L, Hemoglobin 13.3, Hematocrit 40, Mean Corpuscular Volume 92, Mean Corpuscular Hemoglobin 31, Mean Corpuscular Hemoglobin Concent 34, Red Cell Distribution Width 13.2, Platelet Count 231, Mean Platelet Volume 9.7, Neutrophils (%) (Auto) 58, Lymphocytes (%) (Auto) 23, Monocytes (%) (Auto) 11, Eosinophils (%) (Auto) 7, Basophils (%) (Auto) 1, Neutrophils # (Auto) 2.9, Lymphocytes # (Auto) 1.2, Monocytes # (Auto) 0.5, Eosinophils # (Auto) 0.3, Basophils # (Auto) 0.0, Sodium Level 139, Potassium Level 3.5L, Chloride Level 108H, Carbon Dioxide Level 20L, Anion Gap 11, Blood Urea Nitrogen 10, Creatinine 0.68, Estimat Glomerular Filtration Rate > 60, BUN/Creatinine Ratio 15, Glucose Level 74, Calcium Level 8.5, Corrected Calcium 9.0, Phosphorus Level 2.9, Magnesium Level 1.7, Total Bilirubin 0.8, Aspartate Amino Transf (AST/SGOT) 20, Alanine Aminotransferase (ALT/SGPT) 20, Alkaline Phosphatase 81, Total Protein 6.2L, Albumin 3.4 Procedures NAME: SARAH JOYCE MED REC#: [id number] PT STATUS: ADM IN : 1940 PHYSICIAN: GAURAV CASH DO ADMIT DATE: 10/09/19/ICU Draft Date of Exam:10/12/19 CHEST 1 VIEW, AP/PA ONLY HISTORY: Bilateral pneumonia. COMPARISON: 10/11/2019 TECHNIQUE: Single frontal view of the chest FINDINGS: Lung volumes are normal. Airspace opacities in the right lung base and right upper lobe appear stable. There are airspace opacities in the left lung base as well which appears stable. No pleural effusion or pneumothorax is seen. Left-sided pacemaker leads appear stable. There is aortic atherosclerosis. IMPRESSION: 1. Opacities in the lung bases and right upper lobe appear stable since the prior study. Dictated on workstation # [id number] Dict: 10/12/19 [id number] Trans: 10/12/19 0757 THEODORA [id number] Interpreted by: JACE BOUCHER MD Electronically signed by: A/P: Assessment: S/P Dual chamber permanent pacemaker implantation on 10-11-2019 ([facility]) Complete heart block, symptomatic, persistent 48 hours after cessation of beta- blockers. CAD, based on an abnormal stress MPI done on 08/30/13 that showed a small amount of apical ischemia and LVEF 54% PAD followed by Dr Parra; bilat superficial fem artery interventions by Dr Parra in early 2013; subsequent stent thrombosis of R sup fem in early/mid May 2014 requiring thrombolysis and PTCA (Dr Parra). Subsequently, on 09/22/14 he underwent ballooon angioplasty and stenting of prox R SFA and distal R popliteal arteries (Dr Parra). On 02/23/15 he had PCI to R SFA and R and post tibial and peroneal arteries by Dr Burrell; this included balloon angioplasty and multiple stents Last ultrasound of the legs at Dr Heard on 03/28/15 showed excellent flow in the R leg; however, right leg arterial doppler of 07/11/15 shows that R sup fem is occluded within the stent and there is collateralization distally from the right deep femoral. He has since had PCI to the R leg by Dr Richards at [facility] in December 2015 and has no currentl leg claudication ML 11/17/17 at [facility]: 1 on R and 0.5 on L (no leg claudication) Renal arterial u/s of 10/10/17 at [facility]: normal H/o anemia, followed by pcp Hypertension Hyperlipidemia, followed by his pcp Borderline IFG Mild to mod carotid art disease on carotid u/s of January 2017 No AAA on abd ao u/s of January 2017 Chronic tobacco use, quit in early May 2014 Last echo of 12/11/16: LVEF 60%, mild conc LVH, mild LAE, mild aor root enlargement, AoV sclerosis and MAC w/o significant valvular stenoses, mild MR, milt TR, mild AI, PASP [address] angio of 05/26/14 showed bilat pleural eff (mod large), borderline patho logically enlarged mediastinal lymph nodes, and aneurysmal dilatation of ascending aorta (4.6 cm). [address] CT angio of 07/21/17 showed asc ao aneurysm unchanged (4.6cm zahra) and emphysema. For pleural eff and COPD and mediastinal lymphadenopathy, he follows with Dr Cash [facility] Chronic peripheral neuropathy involving the feet, more on the right Hypothyroidism, being managed by pcp Plan: * S/P dual chamber PPM implant on 10-11-2019 d/t persistent CHB 48 hrs after d/c of BB * OK to discharge home today after device interrogation * Multiple questions answered * Continue pervious medications * F/U in 2 - 3 weeks JOEL AMOR Oct 12, 2019 08:48
[2019-10-12] MEDS ORDERED: CEFU500T63 PO (08:52)
[2019-10-12] MEDS ORDERED: POTA-51 PO (08:52)
[2019-10-12] MEDS ORDERED: NFNEB10T PO (11:59)
--- NOTE | 2019-10-12 13:17 | Progress Note - Cardiology ---
Cardiology SOAP Progress Note Subjective: No cp or palp or syncope or shortness of breath No discomfort at site of pm No focal weakness No n/v/d Objective: I&O/Vital Signs 10/12/19 10/12/19 10/12/19 10/12/19 03:38 03:39 04:06 07:00 Temp 36.5 Pulse 67 78 Resp 23 B/P (MAP) 160/85 (110) Pulse Ox 91 O2 Delivery Room Air Room Air 10/12/19 10/12/19 10/12/19 10/12/19 08:00 08:30 12:00 12:21 Pulse 77 72 75 Resp 19 23 B/P (MAP) 143/70 (94) Pulse Ox 91 O2 Delivery Room Air Room Air Room Air 10/12/19 00:00 Intake Total 595 ml Output Total 750 ml Balance -155 ml Weight (Pounds): 179 Weight (Ounces): 1.0 Weight (Calculated Kilograms): 81.572341 Side: left Device Insertion Site: without hematoma Swelling: without swelling Drainage: No Bruising: mild bruising Constitutional: AAO x 3, well-developed, well-nourished Respiratory: No accessory muscle use; other (good bilat air entry) Cardiovascular: regular rate-rhythm, S1 and S2, systolic murmur Gastrointestional: No tender; soft; No guarding, No rebound; audible bowel sounds Extremities: No clubbing, No cyanosis, No significant edema Neurologic/Psychiatric: oriented x 3, other (moves all limbs equally) Skin: No rash on exposed areas, No ulcerations on exposed areas Results/Procedures: Labs Laboratory Tests 10/12/19 03:23: White Blood Count 5.0, Red Blood Count 4.28L, Hemoglobin 13.3, Hematocrit 40, Mean Corpuscular Volume 92, Mean Corpuscular Hemoglobin 31, Mean Corpuscular Hemoglobin Concent 34, Red Cell Distribution Width 13.2, Platelet Count 231, Mean Platelet Volume 9.7, Neutrophils (%) (Auto) 58, Lymphocytes (%) (Auto) 23, Monocytes (%) (Auto) 11, Eosinophils (%) (Auto) 7, Basophils (%) (Auto) 1, Neutrophils # (Auto) 2.9, Lymphocytes # (Auto) 1.2, Monocytes # (Auto) 0.5, Eosinophils # (Auto) 0.3, Basophils # (Auto) 0.0, Sodium Level 139, Potassium Level 3.5L, Chloride Level 108H, Carbon Dioxide Level 20L, Anion Gap 11, Blood Urea Nitrogen 10, Creatinine 0.68, Estimat Glomerular Filtration Rate > 60, BUN/Creatinine Ratio 15, Glucose Level 74, Calcium Level 8.5, Corrected Calcium 9.0, Phosphorus Level 2.9, Magnesium Level 1.7, Total Bilirubin 0.8, Aspartate Amino Transf (AST/SGOT) 20, Alanine Aminotransferase (ALT/SGPT) 20, Alkaline Phosphatase 81, Total Protein 6.2L, Albumin 3.4 Laboratory Tests 10/11/19 03:10 10/12/19 03:23 A/P: Assessment: S/P Dual chamber permanent pacemaker implantation on 10-11-2019 ([facility]) Complete heart block, symptomatic, persistent 48 hours after cessation of beta- blockers. CAD, based on an abnormal stress MPI done on 08/30/13 that showed a small amount of apical ischemia and LVEF 54% PAD followed by Dr Parra; bilat superficial fem artery interventions by Dr Parra in early 2013; subsequent stent thrombosis of R sup fem in early/mid May 2014 requiring thrombolysis and PTCA (Dr Parra). Subsequently, on 09/22/14 he underwent ballooon angioplasty and stenting of prox R SFA and distal R popliteal arteries (Dr Parra). On 02/23/15 he had PCI to R SFA and R and post tibial and peroneal arteries by Dr Burrell; this included balloon angioplasty and multiple stents Last ultrasound of the legs at Dr Heard on 03/28/15 showed excellent flow in the R leg; however, right leg arterial doppler of 07/11/15 shows that R sup fem is occluded within the stent and there is collateralization distally from the right deep femoral. He has since had PCI to the R leg by Dr Richards at [facility] in December 2015 and has no currentl leg claudication ML 11/17/17 at [facility]: 1 on R and 0.5 on L (no leg claudication) Renal arterial u/s of 10/10/17 at [facility]: normal H/o anemia, followed by pcp Hypertension Hyperlipidemia, followed by his pcp Borderline IFG Mild to mod carotid art disease on carotid u/s of January 2017 No AAA on abd ao u/s of January 2017 Chronic tobacco use, quit in early May 2014 Last echo of 12/11/16: LVEF 60%, mild conc LVH, mild LAE, mild aor root enlargement, AoV sclerosis and MAC w/o significant valvular stenoses, mild MR, milt TR, mild AI, PASP [address] angio of 05/26/14 showed bilat pleural eff (mod large), borderline pathologically enlarged mediastinal lymph nodes, and aneurysmal dilatation of ascending aorta (4.6 cm). Last CT angio of 07/21/17 showed asc ao aneurysm unchanged (4.6cm zahra) and emphysema. For pleural eff and COPD and mediastinal lymphadenopathy, he follows with Dr Cash [facility] Chronic peripheral neuropathy involving the feet, more on the right Hypothyroidism, being managed by pcp Plan: * S/P dual chamber PPM implant on 10-11-2019 d/t persistent CHB 48 hrs after d/c of BB * OK to discharge home today after device interrogation * I had a long and detailed discussion with him and his . We discussed post- op care amongst other CV issues. Multiple questions answered * Continue pervious medications * F/U in 2 - 3 weeks RAEGAN MUNGUIA MD FACP FAC CCDS Oct 12, 2019 13:17
--- NOTE | 2019-10-12 17:43 | Discharge Summary ---
Discharge Summary Hospital Course Was the Problem List Reviewed?: Yes Problems/Dx: (1) Complete heart block Status: Acute Hospital Course Date of Admission: Oct 09, 2019 at 14:25 Admission Diagnosis : Complete heart block Family Physician/Provider: Hilaria Hensley MD Date of Discharge: 10/12/19 Discharge Diagnosis: Complete heart block Hospital Course: Luis Orta is an 79-year-old male who presented as a transfer from the [facility] with complete heart block. His beta sanford was held but his heart block persisted. Cardiology was consulted and performed a pacemaker placement. His pacemaker was interrogated prior to discharge. He will follow up with cardiology this week and then again in 2-3 weeks. His initial evaluation was concerning for possible pneumonia but this was ruled out and antibiotics were discontinued. He should follow-up with his primary care physician. Labs and Pending Lab Test: Laboratory Tests 10/12/19 03:23: White Blood Count 5.0, Red Blood Count 4.28L, Hemoglobin 13.3, Hematocrit 40, Mean Corpuscular Volume 92, Mean Corpuscular Hemoglobin 31, Mean Corpuscular Hemoglobin Concent 34, Red Cell Distribution Width 13.2, Platelet Count 231, Mean Platelet Volume 9.7, Neutrophils (%) (Auto) 58, Lymphocytes (%) (Auto) 23, Monocytes (%) (Auto) 11, Eosinophils (%) (Auto) 7, Basophils (%) (Auto) 1, Neutrophils # (Auto) 2.9, Lymphocytes # (Auto) 1.2, Monocytes # (Auto) 0.5, Eosinophils # (Auto) 0.3, Basophils # (Auto) 0.0, Sodium Level 139, Potassium Level 3.5L, Chloride Level 108H, Carbon Dioxide Level 20L, Anion Gap 11, Blood Urea Nitrogen 10, Creatinine 0.68, Estimat Glomerular Filtration Rate > 60, BUN/Creatinine Ratio 15, Glucose Level 74, Calcium Level 8.5, Corrected Calcium 9.0, Phosphorus Level 2.9, Magnesium Level 1.7, Total Bilirubin 0.8, Aspartate Amino Transf (AST/SGOT) 20, Alanine Aminotransferase (ALT/SGPT) 20, Alkaline Phosphatase 81, Total Protein 6.2L, Albumin 3.4 Microbiology 10/11/19 MRSA Screen - Final, Complete MRSA not isolated Home Meds Active Bystolic (Nebivolol HCl) 10 Mg Tab 10 Mg PO DAILY Potassium Chloride 20 Meq Tablet.er 20 Meq PO DAILY Cefuroxime (Cefuroxime Axetil) 500 Mg Tablet 500 Mg PO BID Reported Tylenol Extra Strength (Acetaminophen) 500 Mg Tablet 1,000 Mg PO Q8H PRN Endur-Acin (Niacin) 250 Mg Tablet.er 250 Mg PO 1700 Centrum Silver Tablet (Multivit-Min/FA/Lycopene/Lut) 1 Each Tablet 1 Each PO DAILY Aspirin EC (Aspirin) 81 Mg Tablet.dr 81 Mg PO DAILY Clopidogrel (Clopidogrel Bisulfate) 75 Mg Tablet 75 Mg PO 1700 Gabapentin 300 Mg Capsule 900 Mg PO BID Levothyroxine Sodium 88 Mcg Tablet 88 Mcg PO DAILY Hydrochlorothiazide 25 Mg Tablet 25 Mg PO DAILY Lisinopril 40 Mg Tablet 40 Mg PO DAILY Atorvastatin Calcium 40 Mg Tablet 40 Mg PO 1700 Amlodipine Besylate 10 Mg Tablet 10 Mg PO DAILY Assessment/Pt Instructions Take medications as prescribed. Follow up with cardiology. Discharge Planning: <30 minutes discharge planning Discharge Instructions Discharge Diet: No Restrictions Activity as Tolerated: Yes Consultations Cardiology Discharge Physical Examination Vital Signs Vital Signs Date Time Temp Pulse Resp B/P (MAP) Pulse Ox O2 Delivery O2 Flow Rate FiO2 10/12/19 13:18 10/12/19 12:21 75 10/12/19 12:00 Room Air 10/12/19 12:00 37.0 10/12/19 12:00 23 10/12/19 08:35 94 10/12/19 00:00 General Appearance: No Apparent Distress, WD/WN Respiratory: Lungs Clear, Normal Breath Sounds, No Respiratory Distress Cardiovascular: Regular Rate, Rhythm, No Edema, No Murmur, Other (Left chest wall with new pacemaker and dressing in place) Gastrointestinal: Normal Bowel Sounds, Non Tender, Soft Extremity: Normal Inspection, Non Tender, No Pedal Edema Skin: Normal Color, Warm/Dry Neurologic/Psychiatric: Alert, Oriented x3, No Motor/Sensory Deficits, Normal Mood/Affect Allergies: Coded Allergies: No Known Drug Allergies (Unverified , 09/09/13) Copy Copies To 1: HILARIA HENSLEY MD Discharge Summary Date of Admission Oct 09, 2019 at 14:25 Date of Discharge Oct 12, 2019 at 12:50 Discharge Date: Oct 12, 2019 Discharge Time: 12:50 Admission Diagnosis Complete heart block Consults/Procedures Consulations Cardiology Procedures Pacemaker Discharge Diagnosis Complete heart block (1) Complete heart block Status: Acute Clinical Quality Measures DVT/VTE Risk/Contraindication: Risk Factor Score Per Nursin RFS Level Per Nursing on Admit: 4+=Very High JESUS POPE MD Oct 12, 2019 17:43
== END 2019-10-12 12:50 | disposition home or self-care (01) | DRG 244 ==
LOC: ICU 14:25
PROVIDERS: ADMIT Internal Medicine Cardiovascular Disease; ATTEND Internal Medicine
PROC: 02H63JZ Insertion of Pacemaker Lead into Right Atrium, Percutaneous Approach (ICD-10-PCS; principal; 2019-10-11)
PROC: 0JH606Z Insertion of Pacemaker, Dual Chamber into Chest Subcutaneous Tissue and Fascia, Open Approach (ICD-10-PCS; principal; 2019-10-11)
PROC: 02HK3JZ Insertion of Pacemaker Lead into Right Ventricle, Percutaneous Approach (ICD-10-PCS; principal; 2019-10-11)
DX: I44.2 Atrioventricular block, complete (principal); R09.02 Hypoxemia; I25.10 Atherosclerotic heart disease of native coronary artery without angina pectoris; I10 Essential (primary) hypertension; I73.9 Peripheral vascular disease, unspecified; E87.6 Hypokalemia; E03.9 Hypothyroidism, unspecified; Z66 Do not resuscitate; M19.90 Unspecified osteoarthritis, unspecified site; K57.90 Diverticulosis of intestine, part unspecified, without perforation or abscess without bleeding; Z87.891 Personal history of nicotine dependence; Z97.4 Presence of external hearing-aid; G62.9 Polyneuropathy, unspecified
CPT/HCPCS: 33208; 36415; 71045; 71046; 80048; 80053; 81000; 83735; 83880; 84100; 85025; 85027; 85610; 87081; 87449; 87899; 93005; 93306